=== PATIENT | male | born 1985 | race Caucasian/White ===

== ENCOUNTER 2022-11-18 11:35 | Outpatient (REF) | payer BC, SELFPAY ==
[2022-11-18 14:42] LABS: Alanine Aminotransferase 16 U/L (0-40); Albumin Level 4.9 g/dL (3.5-5.0); Alkaline Phosphatase 72 U/L (39-117); Anion Gap 19 (12-20); Aspartate Amino Transferase 14 U/L (5-37); Blood Urea Nitrogen 12 mg/dL (9-16); Calcium 9.6 mg/dL (8.4-10.2); Carbon Dioxide 23 mmol/L (22-29); Chloride 102 mmol/L (96-108); Cholesterol 183 mg/dL; Estimated Glomerular Filt Rate > 60; Glucose Fasting 81 mg/dL (60-99); HDL Cholesterol 40 mg/dL; LDL Cholesterol Calculated 129 mg/dl; Potassium 3.9 mmol/L (3.3-5.1); Sodium 140 mmol/L (135-145); Total Protein 7.6 g/dL (6.5-8.0); Triglycerides 74 mg/dL
[2022-11-18 14:59] LABS: TSH reflex Free T4 6.91 uIU/mL (0.32-4.0)
[2022-11-18 18:04] LABS: Free T4 (Free Thyroxine) 1.11 ng/dL (0.71-1.85)
== END 2022-11-18 11:36 | disposition home or self-care (01) ==
LOC: HO.WFDLDS 11:35
PROVIDERS: Visit Provider Family Medicine
DX: Z00.00 Encounter for general adult medical examination without abnormal findings (principal)
CPT/HCPCS: 36415; 80053; 80061; 84439; 84443

== ENCOUNTER 2023-11-21 10:08 | Outpatient (REF) | payer BC, SELFPAY ==
[2023-11-21 12:56] LABS: Anion Gap 13 (12-20); Blood Urea Nitrogen 21 mg/dL (9-16); Calcium 9.4 mg/dL (8.4-10.2); Carbon Dioxide 28 mmol/L (22-29); Chloride 104 mmol/L (96-108); Estimated Glomerular Filt Rate > 60; Glucose Random 97 mg/dL (60-115); Potassium 4.5 mmol/L (3.3-5.1); Sodium 140 mmol/L (135-145)
[2023-11-21 13:16] LABS: Free T4 (Free Thyroxine) 1.04 ng/dL (0.71-1.85); Thyroid Stimulating Hormone 1.85 uIU/mL (0.32-4.0)
[2023-11-22 20:04] LABS: Triiodothyronine T3 Total 84 ng/dL (76-181)
== END 2023-11-21 10:09 | disposition home or self-care (01) ==
LOC: HO.WFDLDS 10:08
PROVIDERS: Visit Provider Family Medicine
DX: Z00.00 Encounter for general adult medical examination without abnormal findings (principal); E03.9 Hypothyroidism, unspecified; R79.89 Other specified abnormal findings of blood chemistry
CPT/HCPCS: 36415; 80048; 84439; 84443; 84480

== ENCOUNTER 2023-11-23 08:34 | Outpatient (AMB) | payer BC, SELFPAY ==
[2023-11-23 08:42] VITALS: BP 120/74; PULSE 70; O2SAT 99; BMI 27.6
--- NOTE | 2023-11-23 08:42 | MHC.PC.OV ---
Vital Signs 11/23/23 08:42 Height 6 ft Weight 203 lb 8 oz BMI 27.6 BP 120/74 Blood Pressure Location Lt brachial Position Sitting Pulse 70 Pulse Source Pulse Oximeter Pulse Oximetry (%) 99 Oxygen Delivery Method Room Air Intake Visit Reasons: f/u chronic conditions Intake Note: Patient is here for follow up on chronic conditions, and blood work. Patient is expecting first child, he is concerned about sympathy pains for his , feeling bloating, gassy. Allergies No Known Allergies Allergy (Verified 11/23/23 08:46) Tobacco use date assessed: 11/23/23 Dental Screening Dental Screen Date: 11/23/23 Did you have a dental visit in the last 12 months?: Yes Did you have a dental problem in the last 6 months where you did not have access to dental care?: No Was dental information given to patient?: Patient has dentist HPI f/u chronic conditions HPI Details 38 y/o male presents to f/u chronic conditions. Pt reports anxiety as he is expecting his first child. He reports abdominal bloating. Elevated TSH but recent levels are fine. TSH improved from 6.91 to 1.85. Free T4 and Total T3 within normal limits. HPI Comments History of Present Illness Details Documentation assistance for Benito Hong MD, was provided by Ezio Arias, Ms Sql Server Developer on 11/23/2023 9:18 AM NUN[place]. I, Dr. Hong, have read, observed, and verified documentation. [facility] Medical History Injury of forehead Family History (Updated 11/23/23 @ 08:50 by Keturah Prasad CMA) Maternal Grandmother Cancer Maternal Grandfather Lung cancer Pacemaker Multiple myeloma Paternal Grandfather Lung cancer Maternal Uncle Pancreatic cancer Social History Housing: House Patient Tobacco Use Status: Never used Tobacco e-Cigarette/Vaping Use: Never Used service: No Current occupational status: employed Current occupational exposures/hazards: No Cognitive needs: No Hearing needs: No Vision needs: No Questionnaire PHQ-9 Over the last 2 weeks, how often have you been bothered by any of the following problems? 1. Little interest or pleasure in doing things: not at all 2. Feeling down, depressed, or hopeless: not at all 3. Trouble falling or staying asleep, or sleeping too much: not at all 4. Feeling tired or having little energy: not at all 5. Poor appetite or overeating: not at all 6. Feeling bad about yourself - or that you are a failure or have let yourself or your family down: not at all 7. Trouble concentrating on things, such as reading the newspaper or watching television: not at all 8. Moving or speaking so slowly that other people could have noticed. Or the opposite - being so fidgety or restless that you have been moving around a lot more than usual: not at all 9. Thoughts that you would be better off or of hurting yourself in some way: not at all Total score: 0 Depression Screening Interpretation: Negative Depression Screening Done: Yes Source: Developed by Drs. Mike Gan, Gwen Wiseman, Andrea More and colleagues, with an educational aidee from [employer]. Thrive Questionnaire Date Thrive assessed: 11/23/23 I am a: Patient What is your living situation today?: I have a steady place to live Within the past 12 months, did the food you bought not last and you didn't have the money to get more?: Never true Within the past 12 months, did you worry whether your food would run out before you got money to buy more?: Never true Do you have trouble paying for medicines?: No Do you have trouble getting transportation to medical appointments?: No Do you have trouble paying your heating and electricity bill?: No Do you have trouble taking care of your child, family member or friend?: No Do you have trouble with day-to-day activities such as bathing, preparing meals, shopping, managing finances, etc.?: No Are you currently unemployed and looking for a job?: No Are you interested in more education?: No THRIVE Score: 0 AUDIT C Alcohol Use Questionnaire (AUDIT-C) 1. How often do you have a drink containing alcohol?: Never 3. How often do you have six or more drinks on one occasion?: Never Total Score: 0 ROLY-7 AMB Questionnaire ROLY-7 Date ROLY - 7 assessed: 11/23/23 Feeling nervous, anxious, or on edge: 3 = Nearly every day (Patient is expecting first child.) Not being able to stop or control worryin = Several days Worrying too much about different things: 0 = Not at all Trouble relaxin = Not at all Being so restless that it is hard to sit still: 0 = Not at all Becoming easily annoyed or irritable: 0 = Not at all Feeling afraid as if something awful might happen: 0 = Not at all Total ROLY-7 score (0-4 normal; 5-9 mild; 10-14 moderate; 15-21 severe): 4 Source: Developed by Drs. Mike Gan, Gwen Wiseman, Andrea More and colleagues, with an educational aidee from [employer]. Review of Systems Const Denies chills, Denies fatigue, Denies fever(s), Denies headache(s) and Denies weakness ENT Denies dizziness and Denies headache(s) Card Denies dyspnea Resp Denies cough, Denies dyspnea, Denies wheezing and Denies other (shortness of breath) GI Details: Abdominal bloating Musc Denies numbness and Denies tingling Neuro Denies dizziness, Denies headache(s), Denies numbness, Denies tingling and Denies weakness Psych Reports anxiety and Denies depression Endo Denies fatigue Aller/Immun Denies wheezing Physical exam (Primary Care) Vital Signs: Last Vital Signs Pulse 70 11/23/23 08:42 BP 120/74 11/23/23 08:42 Pulse Ox 99 11/23/23 08:42 Oxygen Delivery Method Room Air 11/23/23 08:42 BMI result Body Mass Index 27.6 Tobacco/Smoking Status: Tobacco use Status Tobacco use date assessed 11/23/23 11/23/23 08:56 Patient Tobacco Use Status Never used Tobacco 11/23/23 08:45 e-Cigarette/Vaping Use Never Used 11/23/23 08:45 PHQ-9: PHQ-9 Score PHQ-9: Total score 0 11/23/23 09:01 Depression Screening Interpretation: Negative Thrive Assessment: Date of Thrive Assessment Date Thrive assessed 11/23/23 11/23/23 08:56 Const General: well developed; No acute distress Nutritional Appearance: well nourished Orientation/consciousness: patient oriented x3 HENMT Head: Yes normocephalic and Yes atraumatic Eyes General: appearance normal, both eyes and all related structures Pupils: Equal, round and reactive pupils present EOM: EOMs intact bilaterally Resp Effort & Inspection: normal respiratory effort Neuro General: patient oriented x3 and gait normal Cranial nerves: Yes Equal, round and reactive pupils present Psych Affect: normal affect Assessment and Plan Assessment & Plan (1) Anxiety: Code(s): F41.9 - Anxiety disorder, unspecified Plan: Anxiety?regarding?soon??of?his?1st?child with?possible?coupon?syndrome?(sympathetic??pains/discomfort). Reassured?patient He?can?let?me?know?if?symptoms?are?worsening?or?if?he?would?like?to?consider?medications?were?therapy (2) Abdominal bloating: Code(s): R14.0 - Abdominal distension (gaseous) Plan: Abdominal?discomfort?and?bloating?which?he?attributes?to?sympathetic??pain?that?he?says?coincides?with?his?'s?discomfort Encouraged?him?to?avoid?trigger?foods,?hydrate?well?and?eat?smaller?meals.??He?can?also?use?simethicone?or?anti-gas?medications.??Offered?to?prescribe?simethicone?but?he?declines?for?now. Stools?are?normal?and?no?blood?in?stools.??Pain?is?not?severe?and?is?intermittent.??No?fevers?or?chills?and?no?nausea. No?red?flags?but?I?advised?he?let?me?know?if?abdominal?pain?is?not?improving/resolving. (3) Elevated TSH: Code(s): R79.89 - Other specified abnormal findings of blood chemistry Plan: TSH?was?elevated?but?on?repeat?was?within?normal?limits?as?was?T4?and?T3 Orders: Orders Free T4 (Free Thyroxine) Today E03.9 - Hypothyroidism, unspecified Triiodothyronine T3 Total Today E03.9 - Hypothyroidism, unspecified Comprehensive [place]. Panel Fast Today Z00.00 - Encounter for general adult medical examination without abnormal findings Complete Blood Count Auto Diff Today Z00.00 - Encounter for general adult medical examination without abnormal findings Lipid Panel Today Z00.00 - Encounter for general adult medical examination without abnormal findings Microalbumin, Random (w Creat) Today I10 - Essential (primary) hypertension Thyroid Stimulating Hormone Today E03.9 - Hypothyroidism, unspecified UA and rflx microscopic Today Z00.00 - Encounter for general adult medical examination without abnormal findings Coding Level of Care Code Est Pt Level 4 (18900) Diagnoses Anxiety F41.9 Abdominal bloating R14.0 Elevated TSH R79.89
== END 2023-11-23 09:19 | disposition home or self-care (01) ==
PROVIDERS: PCP Family Medicine; Visit Provider Family Medicine
DX: F41.9 Anxiety disorder, unspecified (principal); R14.0 Abdominal distension (gaseous); R79.89 Other specified abnormal findings of blood chemistry
CPT/HCPCS: 99214

== ENCOUNTER 2024-02-08 11:39 | Outpatient (REF) | payer BC, SELFPAY ==
[2024-02-08 14:26] LABS: MANUAL DIFF FLAG NO
[2024-02-08 14:30] LABS: Appearance Urine Clear; Color Urine Yellow; Glucose Urine UA Negative (Negative); Leukocyte Esterase Urine Trace (Negative); Nitrite Urine Negative (Negative); PH 5.5 (5.0-9.0); Specific Gravity - Urine 1.025 (1.005-1.025); UMIC TRIGGER UA YES; Urine Blood Negative (Negative); Urine Ketones Negative (Negative); Urine Protein Negative (Neg-Trace)
[2024-02-08 14:36] LABS: Bacteria Urine None Seen (None Seen); Hyaline Casts Urine 0-2 /LPF (0-2); RBC Urine 0-2 /HPF (0-2); Squamous Epithelial Cell Urine 0-2 /HPF (0-2); WBC Urine 0-5 /HPF (0-5)
[2024-02-08 14:56] LABS: Basophils Percent Auto 0.6 % (0-2); Eosinophils Absolute Auto 0.1 X10*3/uL (0.0-0.4); Eosinophils Percent Auto 2.1 % (0-4); Hematocrit 45.5 % (42.0-52.0); Hemoglobin 15.4 g/dl (14.0-18.0); Imm Gran Abs Auto 0.01 X10*3/uL (0.00-0.03); Imm Gran Pct Auto 0.2 % (0.0-0.4); Lymphocytes Absolute Auto 1.6 X10*3/uL (1.2-4.9); Lymphocytes Percent Auto 33.2 % (20-40); Mean Corpuscular HGB Conc 33.8 g/dl (31.0-36.0); Mean Corpuscular Hemoglobin 30.4 pg (27.0-33.0); Mean Corpuscular Volume 89.7 fL (80.0-98.0); Mean Platelet Volume 9.4 fL (9.4-12.4); Monocytes Absolute Auto 0.4 X10*3/uL (0.1-1.2); Monocytes Percent Auto 8.7 % (2-11); Neutrophils Absolute Auto 2.7 x10*3/uL (2.0-8.3); Neutrophils Percent Auto 55.2 % (45-73); Platelet Count 204 X10*3/uL (160-400); Red Blood Count 5.07 X10*6/uL (4.60-5.80); Red Cell Distribution Width 13.1 % (11.0-16.0); White Blood Count 4.9 X10*3/uL (4.8-10.8)
[2024-02-08 15:10] LABS: Alanine Aminotransferase 20 U/L (0-40); Albumin Level 4.5 g/dL (3.5-5.0); Alkaline Phosphatase 58 U/L (39-117); Anion Gap 8 (12-20); Aspartate Amino Transferase 16 U/L (5-37); Bilirubin Total 1.7 mg/dL (0.0-1.0); Blood Urea Nitrogen 17 mg/dL (9-16); Calcium 9.4 mg/dL (8.4-10.2); Carbon Dioxide 30 mmol/L (22-29); Chloride 104 mmol/L (96-108); Cholesterol 196 mg/dL (<200); Estimated Glomerular Filt Rate > 60; Glucose Fasting 92 mg/dL (60-99); HDL Cholesterol 52 mg/dL (>40); LDL Cholesterol Calculated 132 mg/dL (<100); Potassium 4.1 mmol/L (3.3-5.1); Sodium 138 mmol/L (135-145); Total Protein 7.6 g/dL (6.5-8.0); Triglycerides 62 mg/dL (<150)
[2024-02-08 15:17] LABS: Free T4 (Free Thyroxine) 1.09 ng/dL (0.71-1.85); Thyroid Stimulating Hormone 1.69 uIU/mL (0.32-4.0)
[2024-02-08 15:30] LABS: Creatinine Urine 152.14 mg/dL; Microalbum/Creatinine Ratio Ur 5.2 ug/mg cr (<30)
[2024-02-09 08:52] LABS: Triiodothyronine T3 Total 61 ng/dL (76-181)
== END 2024-02-08 11:40 | disposition home or self-care (01) ==
LOC: HO.WFDLDS 11:39
PROVIDERS: Visit Provider Family Medicine
DX: Z00.00 Encounter for general adult medical examination without abnormal findings (principal); E03.9 Hypothyroidism, unspecified; I10 Essential (primary) hypertension
CPT/HCPCS: 36415; 80053; 80061; 81001; 82043; 82570; 84439; 84443; 84480; 85025

== ENCOUNTER 2024-02-15 10:56 | Outpatient (AMB) | payer BC, SELFPAY ==
[2024-02-15 11:07] VITALS: BP 108/60; PULSE 79; RESP 14; TEMP 36.5; O2SAT 99; BMI 28.3
--- NOTE | 2024-02-15 11:07 | A.OFFPC_ITS ---
Vital Signs 02/15/24 11:07 Height 6 ft Weight 208 lb 8 oz BMI 28.3 BP 108/60 Blood Pressure Location Rt brachial Position Sitting Respiration 14 Pulse 79 Pulse Source Pulse Oximeter Temp 97.7 F Temp Source Temporal Artery Scan Pulse Oximetry (%) 99 Oxygen Delivery Method Room Air Intake Visit Reasons: CPE with f/u labs and health maint. 30 mins Physical Therapy Aides Teacher Required: No Accompanied by: Self / Same As Patient Allergies No Known Allergies Allergy (Verified 02/15/24 11:11) Medication List - Last Reconciled 02/15/24 by Benito Hong MD No Known Home Meds Tobacco use date assessed: 02/15/24 Dental Screening Dental Screen Date: 02/15/24 Did you have a dental visit in the last 12 months?: Yes Did you have a dental problem in the last 6 months where you did not have access to dental care?: No Was dental information given to patient?: Patient has dentist HPI CPE with f/u labs and health maint. 30 mins HPI Details Patient?presents?for?complete?physical?exam Reviewed?labs?with?patient Mildly?elevated?LDL?cholesterol TSH?had?been?elevated?but?is?back?in?normal?range.??Rechecked?thyroid?hormones? including?total?T3?which?is?slightly?low His?other?labs?are?okay Patient?notes?he?is?getting?very?poor?sleep?since?his?son?was?born Still?gets?some?abdominal?discomfort?which?he?associates?with?fo ods?but?he?has?not?sure?which?ones [facility] Medical History Injury of forehead Surgical History No pertinent past surgical history Family History Maternal Grandmother Cancer Maternal Grandfather Lung cancer Pacemaker Multiple myeloma Paternal Grandfather Lung cancer Maternal Uncle Pancreatic cancer Social History Housing: House Patient Tobacco Use Status: Never used Tobacco e-Cigarette/Vaping Use: Never Used service: No Current occupational status: employed 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 1. Little interest or pleasure in doing things: not at all 2. Feeling down, depressed, or hopeless: not at all 3. Trouble falling or staying asleep, or sleeping too much: not at all 4. Feeling tired or having little energy: not at all 5. Poor appetite or overeating: not at all 6. Feeling bad about yourself - or that you are a failure or have let yourself or your family down: not at all 7. Trouble concentrating on things, such as reading the newspaper or watching television: not at all 8. Moving or speaking so slowly that other people could have noticed. Or the opposite - being so fidgety or restless that you have been moving around a lot more than usual: not at all 9. Thoughts that you would be better off or of hurting yourself in some way: not at all Total score: 0 Depression Screening Interpretation: Negative Depression Screening Done: Yes [id number] - PHQ-9 Billing: Yes Source: Developed by Drs. Mike Gan, Gwen Wiseman, Andrea More and colleagues, with an educational aidee from [employer]. Thrive Questionnaire Date Thrive assessed: 02/15/24 I am a: Patient What is your living situation today?: I have a steady place to live Within the past 12 months, did the food you bought not last and you didn't have the money to get more?: Never true Within the past 12 months, did you worry whether your food would run out before you got money to buy more?: Never true Do you have trouble paying for medicines?: No Do you have trouble getting transportation to medical appointments?: No Do you have trouble paying your heating and electricity bill?: No Do you have trouble taking care of your child, family member or friend?: No Do you have trouble with day-to-day activities such as bathing, preparing meals, shopping, managing finances, etc.?: No Are you currently unemployed and looking for a job?: No Are you interested in more education?: No Please select the resources that you would like help with: None Currently or been in a relationship where the following occur: no concerns reported THRIVE Score: 0 AUDIT C Alcohol Use Questionnaire (AUDIT-C) 1. How often do you have a drink containing alcohol?: Never 3. How often do you have six or more drinks on one occasion?: Never Total Score: 0 ROLY-7 AMB Questionnaire ROLY-7 Date ROLY - 7 assessed: 02/15/24 Feeling nervous, anxious, or on edge: 0 = Not at all Not being able to stop or control worryin = Not at all Worrying too much about different things: 0 = Not at all Trouble relaxin = Not at all Being so restless that it is hard to sit still: 0 = Not at all Becoming easily annoyed or irritable: 0 = Not at all Feeling afraid as if something awful might happen: 0 = Not at all Total ROLY-7 score (0-4 normal; 5-9 mild; 10-14 moderate; 15-21 severe): 0 Source: Developed by Drs. Mike Gan, Gwen Wiseman, Andrea More and colleagues, with an educational aidee from [employer]. ROLY-7 Assessment Billing ROLY-7 Assessment Tool: ROLY-7 Assessment 93713 Review of Systems Const Details: Review of Systems Const Denies?chills,?Denies?fatigue,?Denies?fever(s),?Denies?headache(s) and?Denies?weakness Eyes Denies?change in vision ENT Denies?dizziness,?Denies?headache(s),?Denies?hearing loss,?Denies?nasal congestion,?Denies?sinus pain,?Denies?sinus pressure and?Denies?sore throat Card Denies?chest pain,?Denies?lightheadedness,?Denies?dyspnea and?Denies?other (palpitations) Resp Denies?cough,?Denies?dyspnea and?Denies?wheezing GI Denies?abdominal pain,?Denies?melena,?Denies?hematochezia,?Denies?change in bowel habits,?Denies?dyspepsia and?Denies?nausea Denies?hematuria and?Denies?dysuria Musc Denies?abnormal gait,?Denies?myalgias,?Denies?arthralgias,?Denies?numbness and?Denies?tingling Skin/Breast Denies?rash,?Denies?unusual bruising and?Denies?wounds Neuro Denies?abnormal gait,?Denies?dizziness,?Denies?headache(s),?Denies?memory loss,?Denies?numbness,?Denies?Sensory deficit (Neuro),?Denies?tingling and?Denies?weakness Psych Denies?anxiety,?Denies?depression and?Denies?memory loss Endo Denies?cold intolerance,?Denies?fatigue,?Denies?heat intolerance,?Denies?polydipsia and?Denies?polyuria Ish/Lymph Denies?easy bleeding and?Denies?easy bruising Aller/Immun Denies?wheezing Physical exam (Primary Care) Vital Signs: Last Vital Signs Temp 97.7 F 02/15/24 11:07 Pulse 79 02/15/24 11:07 Resp 14 02/15/24 11:07 BP 108/60 02/15/24 11:07 Pulse Ox 99 02/15/24 11:07 Oxygen Delivery Method Room Air 02/15/24 11:07 BMI result Body Mass Index 28.3 Tobacco/Smoking Status: Tobacco use Status Tobacco use date assessed 02/15/24 02/15/24 11:14 Patient Tobacco Use Status Never used Tobacco 02/15/24 11:14 e-Cigarette/Vaping Use Never Used 02/15/24 11:14 PHQ-9: PHQ-9 Score PHQ-9: Total score 0 02/15/24 11:14 Depression Screening Interpretation: Negative Thrive Assessment: Date of Thrive Assessment Date Thrive assessed 02/15/24 02/15/24 11:14 Currently or been in a relationship where the following occur: no concerns reported Const Other: Physical Exam Const General:?no acute distress, well developed, alert and awake Nutritional Appearance:?well nourished Orientation/consciousness:?patient oriented x3 [facility] Head:?Yes?normocephalic and?Yes?atraumatic Ears:?hearing grossly normal bilaterally and TM's normal bilaterally General nose exam:?Normal external nose present and Normal nares present Mouth:?Normal oral and palatal mucosa present and moist mucous membranes Teeth and gingiva:?dentition normal Throat:?Yes?posterior oropharynx normal Eyes Pupils:?Equal, round and reactive pupils present and Pupil accommodation reflex normal EOM:?EOMs intact bilaterally Neck Neck:?Yes?normal visual inspection,?Yes?no lymphadenopathy and?Yes?trachea midline Thyroid:?Thyroid normal Carotids:?no bruits Lymphatic:?no lymphadenopathy noted Chest Chest palpation & inspection:?normal inspection of the chest Resp Effort & Inspection:?normal respiratory effort Auscultation:?clear to auscultation bilaterally Cardio Rate:?regular rate Rhythm:?regular rhythm Heart sounds:?S1 normal heart sound present, S2 normal heart sound present, no gallops, no murmurs and no rubs Bruits:?no abdominal aortic bruits and no carotid bruits GI Palpation (GI):?No?Abdominal aortic bruit present, Soft to palpation, nontender, No hepatosplenomegaly present and?No?Rebound tenderness present Auscultation:?normal bowel sounds General:?Yes?no CVA tenderness Back/Spine/Pelvis Back:?no CVA tenderness Cervical Spine:?cervical ROM normal and?No?Cervical spine tenderness Thoracic/Lumbar Spine:?thoraco-lumbar ROM normal,?No?pain with thoraco-lumbar ROM,?No?thoracic spinal tenderness and?No?lumbar spinal tenderness Skin Lesions:?no lesions Rashes:?no rashes Trauma:?no lacerations or abrasions Wounds:?no wounds Nails:?normal Neuro General:?patient oriented x3, gait normal and CN's II-XI intact bilaterally Cranial nerves:?Yes?Equal, round and reactive pupils present Cognition (Neuro):?normal cognition Gait exam (Neuro):?Normal gait present Motor exam (neuro):?5/5 motor strength present throughout Sensory Exam:?No?Sensory deficit (Neuro) Deep tendon reflexes (DTR's):?Right patellar reflex intensity grade:?2+ and?Lef t patellar reflex intensity grade:?2+ Extrem General:?Yes?normal to inspection and?No?edema Psych Appearance:?grossly normal Affect:?normal affect Attitude:?cooperative Thought process:?Normal thought process present Assessment and Plan Assessment & Plan (1) Encounter for general adult medical examination without abnormal findings: Code(s): Z00.00 - Encounter for general adult medical examination without abnormal findings Plan: 38-year-old?male?presents?for?complete?physical?exam Encouraged?healthy?diet?with?active?lifestyle?and?plenty?of?exercise (2) Abdominal discomfort: Code(s): R10.9 - Unspecified abdominal pain Plan: Mild?intermittent?abdominal?discomfort?associated?with?various?foods Advised?he?keep?a?symptom?diary (3) Difficulty sleeping: Code(s): G47.9 - Sleep disorder, unspecified Plan: Difficulty?sleeping?since?the??of?his?son Reminded?him?that?this?is?temporary Advised?he?ask?for?help?by?grandparents?for?him?and?his??to?get?more?sleep (4) Abnormal thyroid blood test: Code(s): R79.89 - Other specified abnormal findings of blood chemistry Plan: Recheck?with?next?lab?draw (5) Hyperlipidemia: Code(s): E78.5 - Hyperlipidemia, unspecified Plan: Mildly?elevated?LDL?cholesterol?at?132?and?goal?is?less?than?100 Advised?diet?lower?in?saturated?fats?and?cholesterol Orders: Orders Lipid Panel Today Z00.00 - Encounter for general adult medical examination without abnormal findings Free T4 (Free Thyroxine) Today E03.9 - Hypothyroidism, unspecified, R79.89 - Other specified abnormal findings of blood chemistry Thyroid Stimulating Hormone Today E03.9 - Hypothyroidism, unspecified, R79.89 - Other specified abnormal findings of blood chemistry Comprehensive [place]. Panel Fast Today Z00.00 - Encounter for general adult medical examination without abnormal findings Triiodothyronine T3 Total Today E03.9 - Hypothyroidism, unspecified, R79.89 - Other specified abnormal findings of blood chemistry Coding Level of Care Code Est Pt Prev Care 18-39y([id number]) Diagnoses Encounter for general adult medical examination without abnormal findings Z00.00 Abdominal discomfort R10.9 Difficulty sleeping G47.9 Abnormal thyroid blood test R79.89 Hyperlipidemia E78.5 Additional Codes ROLY-7 Assessment Billing - ROLY-7 Assessment Tool: ROLY-7 Assessment [id number] ([id number])
== END 2024-02-15 11:58 | disposition home or self-care (01) ==
PROVIDERS: PCP Family Medicine; Visit Provider Family Medicine
DX: Z00.00 Encounter for general adult medical examination without abnormal findings (principal); R10.9 Unspecified abdominal pain; G47.9 Sleep disorder, unspecified; R79.89 Other specified abnormal findings of blood chemistry; E78.5 Hyperlipidemia, unspecified
CPT/HCPCS: 99395